=== PATIENT | female | born 1945 ===

== ENCOUNTER 2018-04-17 17:33 | Observation (INO) | payer MEDICARE, OTHER ==
--- NOTE | 2018-04-17 18:15 | ED PDOC ---
Arrival/HPI - General Chief Complaint: Chest Pain Time Seen by Provider: 04/17/18 17:46 Historian: Patient - History of Present Illness Narrative History of Present Illness (Text): 04/17/18 18:13 Patient is a 72 year old female whose past medical history includes aortic stenosis, s/p AVR, murmurs, and DVT, who presents to the emergency department with family members for 2 days of chest pain with exertion. Patient reports that 2 days ago she started experiencing left sided neck pain which radiated to her left arm and chest. Yesterday she experienced one episode of syncope and admits to experiencing one near syncopal event today. Patient reports that she feels dizzy as if she is about to lose consciousness. Patient states that her chest pain and neck pain occurs with exertion and resolves with rest. She also mentions having left lower extremity edema and myalgia. She had a stress test by her project geologist approximately 1.5 years ago but doesn't remember the results. 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 Patient denies any fever, sore throat, cough, shortness of breath, nausea, vomiting, abdominal pain, urinary/bowel changes, back pain, new rashes, headache or any other associated symptoms. Nurse Sexual Assault: . 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 - Psychiatric Hx Substance Use: No - Surgical History Hx Section: Yes Hx Valve Replacement: Yes - Suicidal Assessment Feels Threatened In Home Enviroment: No Family/Social History - Physician Review Nursing Documentation Reviewed: Yes Family/Social History: No Known Family HX Smoking Status: Never Smoked Hx Alcohol Use: Yes Hx Substance Use: No Hx Substance Use Treatment: No Allergies/Home Meds Allergies/Adverse Reactions: Allergies No Known Allergies Allergy (Verified 04/17/18 17:51) Review of Systems - Review of Systems Constitutional: absent: Fevers ENT: absent: Sore Throat Respiratory: absent: SOB, Cough Cardiovascular: Chest Pain, Syncope Gastrointestinal: absent: Abdominal Pain, Stool Changes, Nausea, Vomiting Genitourinary Female: absent: Urine Output Changes Musculoskeletal: Myalgias (left lower extremity.), Other (left lower extremity edema) Neurological: Dizziness. absent: Headache Psychiatric: absent: Depression Physical Exam Vital Signs Reviewed: Yes Vital Signs Temp Pulse Resp BP Pulse Ox 04/17/18 18:09 98.0 F 59 L 18 139/77 96 Temperature: Afebrile Blood Pressure: Normal Pulse: Bradycardic Respiratory Rate: Normal Appearance: Positive for: Well-Appearing Mental Status: Positive for: Alert and Oriented X 3 - Systems Exam Head: Present: Atraumatic, Normocephalic Pupils: Present: PERRL Extroacular Muscles: Present: EOMI Conjunctiva: Present: Normal Mouth: Present: Moist Mucous Membranes Neck: Present: Normal Range of Motion Respiratory/Chest: Present: Clear to Auscultation, Good Air Exchange. No: Respiratory Distress, Accessory Muscle Use Cardiovascular: Present: Murmurs, Normal S1, S2, Bradycardic Abdomen: No: Tenderness, Distention, Peritoneal Signs Back: Present: Normal Inspection Upper Extremity: Present: Normal Inspection. No: Cyanosis, Edema Lower Extremity: Present: Edema (Left lower extremity swelling.) Neurological: Present: GCS=15, CN II-XII Intact, Speech Normal Skin: Present: Warm, Dry, Normal Color. No: Rashes Psychiatric: Present: Alert, Oriented x 3, Normal Insight, Normal Concentration Medical Decision Making ED Course and Treatment: 04/17/18 18:34 Impression: patient is a 72 year old female who presents to the emergency department complaining of left neck pain radiating to chest and hand for the past 2 days. Had one syncopal event yesterday. Plan: -- Head CT without contrast -- Labs -- Cardiac enzymes -- EKG -- Chest X-ray -- Urinalysis -- Aspirin -- Lower extremity doppler. -- Reassess and disposition Prior Visits: Notes and results from previous visits were reviewed. Progress Notes: 04/17/18 EKG shows sinus bradycardia at 52 BPM with LBBB. LBBB unchanged from 02/17/13. Interpreted by me. 04/17/18 19:11 Radiology called and stated that US negative for DVT. 04/17/18 19:47 Discussed case with , who is aware of and agrees to accept patient under his service. 08/08/18 20:14 CT Head Without Intravenous Contrast: FINDINGS: Brain: Periventricular hypoattenuation is likely related to small vessel disease. No hemorrhage. Ventricles: Unremarkable. No ventriculomegaly. Bones/joints: Unremarkable. No acute fracture. Soft tissues: Unremarkable. Vasculature: 7mm focal calcification noted in the left frontal region. Associated lesion or vascular malformation evaluation is limited and cannot be excluded on this exam. MR evaluation is advised on non-emergent basis. No prior exams available for comparison. Sinuses: Unremarkable as visualized. No acute sinusitis. Mastoid air cells: Unremarkable as visualized. No mastoid effusion. Other findings: No acute findings. IMPRESSION: 1. No acute findings. 2. 7mm focal calcification noted in the left frontal region. Associated lesion or vascular malformation evaluation is limited and cannot be excluded on this exam. MR evaluation is advised on nonemergent basis. No prior exams available for comparison. Dictated and Authenticated by: Brooke Vegas MD - Lab Interpretations Lab Results: 04/17/18 18:10 04/17/18 18:10 Lab Results 04/17/18 18:30: Urine Color Yellow, Urine Appearance Clear, Urine pH 7.0, Ur Specific Constantia < 1.005 L, Urine Protein Negative, Urine Glucose (UA) Negative , Urine Ketones Negative, Urine Blood Small H, Urine Nitrate Negative, Urine Bilirubin Negative, Urine Urobilinogen 0.2, Ur Leukocyte Esterase Small H, Urine RBC 1 - 3, Urine WBC 2 - 5, Ur Epithelial Cells 3 - 4, Urine Bacteria Few 04/17/18 18:10: Sodium 141, Potassium 4.7, Chloride 103, Carbon Dioxide 29, Anion Gap 14, BUN 20, Creatinine 0.8, Est GFR ( Amer) > 60, Est GFR (Non- Af Amer) > 60, Random Glucose 88, Calcium 9.3, Magnesium 2.1, Total Bilirubin 0.4, AST 36, ALT 40, Alkaline Phosphatase 57, Lactate Dehydrogenase 672, Total Creatine Kinase 65, Troponin I < 0.01, NT-Pro-B Natriuret Pep 214, Total Protein 7.3, Albumin 4.4, Globulin 2.9, Albumin/Globulin Ratio 1.5 04/17/18 18:10: PT 43.7 H, INR 3.73 H*, APTT 43.3 H 04/17/18 18:10: WBC 6.1, RBC 4.69, Hgb 13.0, Hct 39.6, MCV 84.4, MCH 27.7, MCHC 32.8, RDW 13.1, Plt Count 194, MPV 10.3, Gran % 53.5, Lymph % (Auto) 38.5 H, Sabine % (Auto) 4.9, Eos % (Auto) 2.6, Baso % (Auto) 0.5, Gran # 3.26, Lymph # ( Auto) 2.4, Sabine # (Auto) 0.3, Eos # (Auto) 0.2, Baso # (Auto) 0.03 04/17/18 18:01: POC Glucose (mg/dL) 84 I have reviewed the lab results: Yes - RAD Interpretation Radiology Orders: 04/17/18 18:06 CHEST PORTABLE [RAD] Stat DUPLEX LOWER EXTRM VEIN LEFT [US] Stat 04/17/18 18:30 HEAD W/O CONTRAST [CT] Stat Video Arcade Manager: Radiologist - EKG Interpretation Interpreted by ED Physician: Yes Type: 12 lead EKG - Medication Orders Current Medication Orders: Aspirin (Ecotrin) 81 mg PO DAILY JANENE Discontinued Medications Aspirin (Aspirin) 325 mg PO STAT STA Stop: 04/17/18 18:07 Last Admin: 04/17/18 18:21 Dose: 325 mg - Scribe Statement The provider has reviewed the documentation as recorded by the Naomie Guillen Provider Scribe Attestation: All medical record entries made by the Scribe were at my direction and personally dictated by me. I have reviewed the chart and agree that the record accurately reflects my personal performance of the history, physical exam, medical decision making, and the department course for this patient. I have also personally directed, reviewed, and agree with the discharge instructions and disposition. Disposition/Present on Arrival - Present on Arrival Any Indicators Present on Arrival: No History of DVT/PE: Yes History of Uncontrolled Diabetes: No Urinary Catheter: No History of Decub. Ulcer: No History Surgical Site Infection Following: None - Disposition Have Diagnosis and Disposition been Completed?: Yes Diagnosis: Syncope, Chest pain, Abnormal CT of brain Disposition: HOSPITALIZED Disposition Time: 20:13 Patient Plan: Observation Patient Problems: Current Active Problems Problem Status Onset Syncope Acute Chest pain Acute Abnormal CT of brain Acute Condition: FAIR Discharge Instructions (ExitCare): Chest Pain (ED), Syncope (ED) Forms: [facility] (Khmer)
[2018-04-17 19:23] LABS: URINE APPEARANCE CLEAR (CLEAR); URINE BILIRUBIN NEGATIVE (NEGATIVE); URINE COLOR YELLOW (YELLOW); URINE GLUCOSE (UA) NEGATIVE (NEGATIVE)
[2018-04-17 19:24] LABS: URINE BLOOD SMALL (NEGATIVE); URINE LEUKOCYTE ESTERASE SMALL Leu/uL (NEGATIVE); URINE PROTEIN NEGATIVE mg/dL (<30 mg/dL); URINE UROBILINOGEN 0.2 E.U./dL (<1 E.U./dL)
[2018-04-17 19:25] LABS: GRAN % 53.5 % (50.0-68.0); LYMPH % 38.5 % (22.0-35.0); MEAN CELL VOLUME 84.4 fl (80.0-105.0); MEAN CORPUSCULAR HEMOGLOBIN 27.7 pg (25.0-35.0); MEAN CORPUSCULAR HGB CONC 32.8 g/dl (31.0-37.0); MEAN PLATELET VOLUME 10.3 fl (7.0-11.0); RBC 4.69 10^6/uL (3.5-6.1); RED CELL DISTRIBUTION WIDTH 13.1 % (11.5-14.5); WHITE BLOOD COUNT 6.1 10^3/ul (4.5-11.0)
[2018-04-17 19:26] LABS: BASO # 0.03 K/mm3 (0.0-2.0); BASO % 0.5 % (0.0-3.0); EOS # 0.2 (0.0-0.7); EOS % 2.6 % (1.5-5.0); GRAN # 3.26 (1.4-6.5); LYMPH # 2.4 (1.2-3.4); MONO # 0.3 (0.1-0.6); MONO % 4.9 % (1.0-6.0)
[2018-04-17 19:33] LABS: PARTIAL THROMBOPLASTIN TIME 43.3 Seconds (25.1-36.5); PROTHROMBIN TIME 43.7 SECONDS (9.4-12.5)
[2018-04-17 19:36] LABS: INR 3.73
[2018-04-17 19:38] LABS: URINE BACTERIA FEW (NEG)
[2018-04-17 19:41] LABS: BLOOD UREA NITROGEN 20 mg/dL (7-21); GFR AFRICAN-AMERICAN > 60; GFR NON-AFRICAN AMERICAN > 60
[2018-04-17 19:42] LABS: ALB/GLOB RATIO 1.5 (1.1-1.8); ALBUMIN 4.4 g/dL (3.0-4.8); ALT/SGPT 40 U/L (7-56); AST/SGOT 36 U/L (14-36); B-TYPE NATRIURETIC PEPTIDE 214 pg/mL (0-450); CALCIUM 9.3 mg/dL (8.4-10.5)
[2018-04-17 19:43] LABS: TROPONIN I < 0.01 ng/mL
[2018-04-17 23:54] VITALS: BMI 27.3
[2018-04-18 06:28] VITALS: O2SAT 97
--- NOTE | 2018-04-18 07:45 | CT ---
Date of service: 04/17/2018 PROCEDURE: CT HEAD WITHOUT CONTRAST. HISTORY: head injury COMPARISON: None available. TECHNIQUE: Axial computed tomography images were obtained through the head/brain without intravenous contrast. Radiation dose: Total exam DLP = 760 mGy-cm. This CT exam was performed using one or more of the following dose reduction techniques: Automated exposure control, adjustment of the mA and/or kV according to patient size, and/or use of iterative reconstruction technique. FINDINGS: HEMORRHAGE: No intracranial hemorrhage. BRAIN: No mass effect or edema. There is a 7 mm calcification in the left frontal lobe. No acute intracranial findings VENTRICLES: Unremarkable. No hydrocephalus. CALVARIUM: Unremarkable. PARANASAL SINUSES: Unremarkable as visualized. No significant inflammatory changes. MASTOID AIR CELLS: Unremarkable as visualized. No inflammatory changes. OTHER FINDINGS: The report concurs with the preliminary [facility] report IMPRESSION: No acute intracranial finding
--- NOTE | 2018-04-18 07:52 | CP.PCM.HP ---
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 For a week, pt had been feeling chest pain when she exert herself, improves at rest. 2 days ago, CP became worse and associated with dizziness/ syncope. She started at left sided neck pain which radiated to her left arm and chest during exertion, 8/10, improves at rest. Yesterday she experienced one episode of syncope and admits to experiencing one near syncopal event yesterday. She has decreased exercise tolerance and feeling dizzy only after walking 1/2 of a block. ROS: (+) CP, dizziness. (+) left lower extremity edema and myalgia. Patient denies any fever, sore throat, cough, shortness of breath, nausea, vomiting, abdominal pain, urinary/bowel changes, back pain, new rashes, headache or any other associated symptoms. She had a stress test by her farm reporter approximately 1.5 years ago but doesn' t remember the results. ER course: VSS. CBC normal. INR 3.73. APTT 43.3. CMP normal trop < 0,01. U/A (+) LE/blood EKG shows sinus bradycardia at 52 BPM with LBBB. LBBB unchanged from 02/17/13. U/S neg DVT CT head: No acute findings. (+) 7mm focal calcification noted in the left frontal region. 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 denies drug All: NKDA Med: Warfarin, lipitor 80, lopressor 25bid Present on Admission - Present on Admission Any Indicators Present on Admission: No Past Patient History - Infectious Disease Hx of Infectious Diseases: None - Tetanus Immunizations Tetanus Immunization: Unknown - Past Social History Smoking Status: Never Smoked - CARDIAC Hx Cardiac Disorders: Yes ([place],Cardiac arrest, valve replacement) Hx Angina: No Hx Cardia Arrhythmia: No Hx Circulatory Problems: No Hx Congestive Heart Failure: No Hx Heart Murmur: Yes Hx Heart Transplant: No Hx Hypercholesterolemia: Yes Hx Hypertension: No Hx Internal Defibrillator: No Hx Mitral Valve Prolapse: No Hx Pacemaker: No Hx Peripheral Edema: No Hx Peripheral Vascular Disease: No - PULMONARY Hx Respiratory Disorders: No Hx Asthma: No Hx Bronchitis: No Hx Chronic Obstructive Pulmonary Disease (COPD): No Hx Emphysema: No Hx Pneumonia: No Hx Respiratory Aspiration: No Hx Respiratory Tract Infection: No Hx Sleep Apnea: No Hx Tuberculosis: No - NEUROLOGICAL Hx Neurological Disorder: Yes (Tremors left hand) Hx Alzheimer's Disease: No HX Cerebrovascular Accident: No Hx Dementia: No Hx Dizziness: No Hx Meningitis: No Hx Migraine: No Hx Parkinson's Disease: No Hx Seizures: No Hx Transient Ischemic Attacks (TIA): No - HEENT Hx HEENT Problems: Yes (wears glases) Hx Blind: No Hx Cataracts: No Hx Deafness: No Hx Difficulty Chewing: No Hx Epistaxis: No Hx Glaucoma: No Hx Macular Degeneration: No - RENAL Hx Chronic Kidney Disease: No Hx Dialysis: No Hx Kidney Stones: No Hx Neurogenic Bladder: No Hx Pyelonephritis: No Hx Renal (Kidney) Cancer: No Hx Renal Failure: No - ENDOCRINE/METABOLIC Hx Endocrine Disorders: No Hx Adrenal Cancer: No Hx Diabetes Insipidus: No Hx Diabetes Mellitus Type 1: No Hx Diabetes Mellitus Type 2: No Hx Hyperthyroidism: No Hx Hypothyroidism: No Hx Systemic Lupus Erythematosus: No - HEMATOLOGICAL/ONCOLOGICAL Hx Blood Disorders: No Hx AIDS: No Hx Anemia: No Hx Cancer: No Hx Chemotherapy: No Hx Cirrhosis: No Hx Hemophilia: No Hx Hepatitis A: No Hx Hepatitis B: No Hx Hepatitis C: No Hx Human Immunodeficiency Virus (HIV): No Hx Metastesis: No Hx Shingles: No Hx Sickle Cell Disease: No Hx Unexplained Bleeding: No - INTEGUMENTARY Hx Dermatological Problems: No Hx Basil Cell: No Hx Eczema: No Hx Melanoma: No Hx Psoriasis: No Hx Squamous Cell: No - MUSCULOSKELETAL/RHEUMATOLOGICAL Hx Musculoskeletal Disorders: Yes Hx Arthritis: Yes Hx Back Pain: No Hx Degenerative Joint Disease: No Hx Falls: Yes Hx Fractures: No Hx Gout: No Hx Herniated Disk: No Hx Myasthenia Gravis: No Hx Osteoarthritis: No Hx Osteomyelitis: No Hx Osteoporosis: No Hx Rhabdomyolysis: No Hx Spinal Stenosis: No Hx Unsteady Gait: No - GASTROINTESTINAL Hx Gastrointestinal Disorders: No Hx Colostomy: No Hx Crohn's Disease: No Hx Diverticulitis: No Hx Gall Bladder Disease: No Hx Gastroesophageal Reflux: No Hx Ileostomy: No Hx Liver Failure: No Hx Pancreatitis: No HX Swallowing Problems: No Hx Ulcer: No - GENITOURINARY/GYNECOLOGICAL Hx Genitourinary Disorders: No Hx Hematuria: No Hx Incontinence: No Hx Sexually Transmitted Disorders: No Hx Urinary Tract Infection: No - PSYCHIATRIC Hx Psychophysiologic Disorder: No Hx Anxiety: No Hx Bipolar Disorder: No Hx Depression: No Hx Emotional Abuse: No Hx Hallucinations: No Hx Panic Symptoms: No Hx Paranoia: No Hx Post Traumatic Stress Disorder: No Hx Psychosis: No Hx Physical Abuse: No Hx Schizophrenia: No Hx Sexual Abuse: No - SURGICAL HISTORY Hx Surgeries: Yes (breast cyst removed, uterine cyst removed) Hx Amputation: No Hx Appendectomy: No Hx Cardiac Catheterization: No Hx Cholecystectomy: No Hx Coronary Stent: No Hx Gastric Bypass Surgery: No Hx Hysterectomy: No Hx Joint Replacement: No Hx Kidney Transplant: No Hx Liver Transplant: No Hx Mastectomy: No Hx Musculoskeletal Surgery: No Hx Open Heart Surgery: Yes Hx Orthopedic Surgery: No Hx Splenectomy: No Hx Valve Replacement: Yes Meds Allergies/Adverse Reactions: Allergies Allergy/AdvReac Type Severity Reaction Status Date / Time No Known Allergies Allergy Verified 04/17/18 17:51 Physical Exam - Constitutional Appears: No Acute Distress - Head Exam Head Exam: ATRAUMATIC, NORMAL INSPECTION, NORMOCEPHALIC Additional comments: No temporal tenderness or jaw pain - Eye Exam Eye Exam: EOMI, Normal appearance, PERRL. absent: Scleral icterus Pupil Exam: NORMAL ACCOMODATION - ENT Exam ENT Exam: Mucous Membranes Moist - Neck Exam Additional comments: supple - Respiratory Exam Respiratory Exam: Clear to Auscultation Bilateral. absent: Rales, Rhonchi, Wheezes - Cardiovascular Exam Cardiovascular Exam: REGULAR RHYTHM, +S1, +S2 Additional comments: loud S2, minimal murmur - GI/Abdominal Exam GI & Abdominal Exam: Normal Bowel Sounds, Soft. absent: Distended, Rigid, Tenderness - Extremities Exam Extremities exam: Positive for: normal capillary refill, pedal pulses present. Negative for: calf tenderness, pedal edema, tenderness - Back Exam Back exam: absent: CVA tenderness (L), CVA tenderness (R) - Neurological Exam Neurological exam: Alert, Oriented x3 - Psychiatric Exam Psychiatric exam: Normal Affect, Normal Mood - Skin Skin Exam: Dry, Warm Results - Vital Signs Recent Vital Signs: Last Vital Signs Temp 98 F 04/18/18 06:00 Pulse 63 04/18/18 06:00 Resp 16 04/18/18 06:00 BP 130/60 04/18/18 06:00 Pulse Ox 97 04/18/18 06:00 - Labs Result Diagrams: 04/17/18 18:10 04/17/18 18:10 Assessment & Plan - Assessment and Plan (Free Text) Plan: Ms Gómez, 72 F, PMHx aortic stenosis s/p open heart AVR, 2 MIs, Murmur, DVTx2/ mesentary artery thrombosis on warfarn, presented to ED for chest pain with dizziness and decreased exercise tolerance. CT head showed (+) 7mm focal calcification noted in the left frontal region. Associated lesion or vascular malformation Chest pain - telemetry, trend trops, serial EKG - Echo - pending cardio re: whether to do stress test. will make pt NPOmn just in case Syncope, cardiac vs neuro-origin, in the setting of chest pain and calcification in head - Telemetry, neuro and cardio on consult - (+) orthostatic hypotension. - pending echo - pending carotid artery to r/o vertibral insufficiancey - physical therapy for high fall risk Orthostatic hypotension - Maintain adequate hydration 7mm focal calcification noted in the left frontal region - BP control. follow up with neuro outpatient for monitoring Hypercoagulable state - Continue warfarin goal 2-3. daily INR. follow up with outpatient waterproofing machine operator or primary care doctor to complete hypercoagulable workup. Hand tremor - chronic, occupation therapy consult Neck pain - likely CP radiation vs musculoskeletal. Tylenol PRN for pain control. Low risk of temporal artery artertitis. CAD s/p 2MI, continue start ASA. Continue home metoprolol and lopressor. No INES/ ARB. will monitor BP s/r/d/w Dr Alicia <Chase Alicia S - Last Filed: 04/18/18 20:49> Results - Vital Signs Recent Vital Signs: Last Vital Signs Temp 97.9 F 04/18/18 17:04 Pulse 70 04/18/18 18:00 Resp 18 04/18/18 17:04 BP 147/57 L 04/18/18 17:30 Pulse Ox 97 04/18/18 06:00 - Labs Result Diagrams: 04/17/18 18:10 04/17/18 18:10 Labs: Laboratory Results - last 24 hr 04/18/18 12:30 Lactate Dehydrogenase 564 Total Creatine Kinase 52 Troponin I < 0.01 Assessment & Plan - Assessment and Plan (Free Text) Plan: Pt seen and examined. I have reviewed the note of the medical van driver and agree with it. I have discussed the assessment and plan with the resident. I have reviewed the patient's labs and medications. Pt with syncope. Pt would like to see Dr Tellez for her cardiology evaluation. She will need an echo. Pt has hx of DVT and on Coumadin.
--- NOTE | 2018-04-18 08:22 | RAD ---
Date of service: 04/17/2018 HISTORY: chest pain COMPARISON: 10/16/2014. FINDINGS: LUNGS: The lungs are well inflated and clear. PLEURA: No significant pleural effusion identified, no pneumothorax apparent. CARDIOVASCULAR: There is mild cardiomegaly. Status post CABG. OSSEOUS STRUCTURES: No significant abnormalities. VISUALIZED UPPER ABDOMEN: Normal. OTHER FINDINGS: There is chronic elevation of the right hemidiaphragm. IMPRESSION: No active pulmonary disease.
--- NOTE | 2018-04-18 10:34 | US ---
PROCEDURE: Left lower extremity venous US HISTORY: Leg pain and swelling. Evaluate for DVT. PHYSICIAN(S): Yonny Lafleur MD. TECHNIQUE: Duplex sonography and color-flow Doppler with graded compression were used to evaluate the deep venous system of the left lower extremity. FINDINGS: The visualized deep venous system of the left lower extremity is sonographically normal and compressible. Normal wave forms and augmentation are seen. There is no sonographic evidence for deep venous thrombosis in the visualized segments of the left lower extremity. IMPRESSION: 1. No sonographic evidence for deep venous thrombosis in the visualized segments of the left lower extremity.
--- NOTE | 2018-04-18 11:11 | CP.PCM.CON ---
History of Present Illness - History of Present Illness History of Present Illness: Awake, alert, denies chest pain, denies shortness of breath Reason for consultation: Cardiac evaluation of chest pain radiating to left arm and left side of neck. History of aortic valve replacement 2 years ago for aortic stenosis. Brief history of present illness: A 72 year old female who came in to the ER due to chest pain off and on and symptoms progressed for the past 2 days radiating to left arm and left side of neck. chest pain gets relieved with rest. Yesterday she experienced episode of syncope and admits to experiencing one near syncopal event . She had the same symptoms prior to having the valve surgery. Now denies any complaints but wanted to be worked up. Last seen by Dr. Viramontes 2 weeks ago but wanted to be seen by another Nursery Technician. History of DVT and taking Warfarin. History of aortic valve replacement 2 years ago for aortic stenosis in [place]. History of arthritis, falls, hypercholesterolemia, tremors on left hand. Seen and examined by me and Dr. Tellez Review of Systems - Review of Systems All systems: reviewed and no additional remarkable complaints except Review of Systems: except from HPI Past Patient History - Infectious Disease Hx of Infectious Diseases: None - Tetanus Immunizations Tetanus Immunization: Unknown - Past Social History Smoking Status: Never Smoked - CARDIAC Hx Cardiac Disorders: Yes ([place],Cardiac arrest, valve replacement) Hx Angina: No Hx Cardia Arrhythmia: No Hx Circulatory Problems: No Hx Congestive Heart Failure: No Hx Heart Murmur: Yes Hx Heart Transplant: No Hx Hypercholesterolemia: Yes Hx Hypertension: No Hx Internal Defibrillator: No Hx Mitral Valve Prolapse: No Hx Pacemaker: No Hx Peripheral Edema: No Hx Peripheral Vascular Disease: No - PULMONARY Hx Respiratory Disorders: No Hx Asthma: No Hx Bronchitis: No Hx Chronic Obstructive Pulmonary Disease (COPD): No Hx Emphysema: No Hx Pneumonia: No Hx Respiratory Aspiration: No Hx Respiratory Tract Infection: No Hx Sleep Apnea: No Hx Tuberculosis: No - NEUROLOGICAL Hx Neurological Disorder: Yes (Tremors left hand) Hx Alzheimer's Disease: No HX Cerebrovascular Accident: No Hx Dementia: No Hx Dizziness: No Hx Meningitis: No Hx Migraine: No Hx Parkinson's Disease: No Hx Seizures: No Hx Transient Ischemic Attacks (TIA): No - HEENT Hx HEENT Problems: Yes (wears glases) Hx Blind: No Hx Cataracts: No Hx Deafness: No Hx Difficulty Chewing: No Hx Epistaxis: No Hx Glaucoma: No Hx Macular Degeneration: No - RENAL Hx Chronic Kidney Disease: No Hx Dialysis: No Hx Kidney Stones: No Hx Neurogenic Bladder: No Hx Pyelonephritis: No Hx Renal (Kidney) Cancer: No Hx Renal Failure: No - ENDOCRINE/METABOLIC Hx Endocrine Disorders: No Hx Adrenal Cancer: No Hx Diabetes Insipidus: No Hx Diabetes Mellitus Type 1: No Hx Diabetes Mellitus Type 2: No Hx Hyperthyroidism: No Hx Hypothyroidism: No Hx Systemic Lupus Erythematosus: No - HEMATOLOGICAL/ONCOLOGICAL Hx Blood Disorders: No Hx AIDS: No Hx Anemia: No Hx Cancer: No Hx Chemotherapy: No Hx Cirrhosis: No Hx Hemophilia: No Hx Hepatitis A: No Hx Hepatitis B: No Hx Hepatitis C: No Hx Human Immunodeficiency Virus (HIV): No Hx Metastesis: No Hx Shingles: No Hx Sickle Cell Disease: No Hx Unexplained Bleeding: No - INTEGUMENTARY Hx Dermatological Problems: No Hx Basil Cell: No Hx Eczema: No Hx Melanoma: No Hx Psoriasis: No Hx Squamous Cell: No - MUSCULOSKELETAL/RHEUMATOLOGICAL Hx Musculoskeletal Disorders: Yes Hx Arthritis: Yes Hx Back Pain: No Hx Degenerative Joint Disease: No Hx Falls: Yes Hx Fractures: No Hx Gout: No Hx Herniated Disk: No Hx Myasthenia Gravis: No Hx Osteoarthritis: No Hx Osteomyelitis: No Hx Osteoporosis: No Hx Rhabdomyolysis: No Hx Spinal Stenosis: No Hx Unsteady Gait: No - GASTROINTESTINAL Hx Gastrointestinal Disorders: No Hx Colostomy: No Hx Crohn's Disease: No Hx Diverticulitis: No Hx Gall Bladder Disease: No Hx Gastroesophageal Reflux: No Hx Ileostomy: No Hx Liver Failure: No Hx Pancreatitis: No HX Swallowing Problems: No Hx Ulcer: No - GENITOURINARY/GYNECOLOGICAL Hx Genitourinary Disorders: No Hx Hematuria: No Hx Incontinence: No Hx Sexually Transmitted Disorders: No Hx Urinary Tract Infection: No - PSYCHIATRIC Hx Psychophysiologic Disorder: No Hx Anxiety: No Hx Bipolar Disorder: No Hx Depression: No Hx Emotional Abuse: No Hx Hallucinations: No Hx Panic Symptoms: No Hx Paranoia: No Hx Post Traumatic Stress Disorder: No Hx Psychosis: No Hx Physical Abuse: No Hx Schizophrenia: No Hx Sexual Abuse: No - SURGICAL HISTORY Hx Surgeries: Yes (breast cyst removed, uterine cyst removed) Hx Amputation: No Hx Appendectomy: No Hx Cardiac Catheterization: No Hx Cholecystectomy: No Hx Coronary Stent: No Hx Gastric Bypass Surgery: No Hx Hysterectomy: No Hx Joint Replacement: No Hx Kidney Transplant: No Hx Liver Transplant: No Hx Mastectomy: No Hx Musculoskeletal Surgery: No Hx Open Heart Surgery: Yes Hx Orthopedic Surgery: No Hx Splenectomy: No Hx Valve Replacement: Yes Meds Allergies/Adverse Reactions: Allergies Allergy/AdvReac Type Severity Reaction Status Date / Time No Known Allergies Allergy Verified 04/17/18 17:51 - Medications Medications: Current Medications Aspirin (Ecotrin) 81 mg PO DAILY [facility] Last Admin: 04/18/18 09:30 Dose: 81 mg Physical Exam - Constitutional Appears: No Acute Distress - Eye Exam Eye Exam: Normal appearance - ENT Exam ENT Exam: Mucous Membranes Moist - Respiratory Exam Respiratory Exam: Decreased Breath Sounds, NORMAL BREATHING PATTERN - Cardiovascular Exam Cardiovascular Exam: REGULAR RHYTHM, +S1, +S2 Additional comments: NSR 70's - GI/Abdominal Exam GI & Abdominal Exam: Normal Bowel Sounds, Soft - Neurological Exam Neurological exam: Alert, Oriented x3 - Psychiatric Exam Psychiatric exam: Normal Affect - Skin Skin Exam: Dry, Warm Results - Vital Signs Recent Vital Signs: Last Vital Signs Temp 98 F 04/18/18 06:00 Pulse 76 04/18/18 10:00 Resp 16 04/18/18 06:00 BP 130/60 04/18/18 06:00 Pulse Ox 97 04/18/18 06:00 - Labs Result Diagrams: 04/17/18 18:10 04/17/18 18:10 Assessment & Plan - Assessment and Plan (Free Text) Assessment: A 72 year old female who came in to the ER due to chest pain off and on and progressed for the past 2 days radiating to left arm and left side of neck. chest pain gets relieved with rest. Yesterday she experienced one episode of syncope and admits to experiencing one near syncopal event . She had the same symptoms prior to having the valve surgery. Now denies any complaints but wanted to be worked up. Last seen by Dr. Viramontes 2 weeks ago but wanted to be seen by another Nursery Technician. History of DVT and taking Warfarin. History of aortic valve replacement 2 years ago for aortic stenosis in [place].History of arthritis, falls, hypercholesterolemia, tremors on left hand. EKG shows sinus bradycardia at 52 BPM with LBBB,CT head: No acute findings. (+) 7mm focal calcification noted in the left frontal region. Associated lesion or vascular malformation, Syncopal episode may be due to orthostatic hypotension, orthostatic vital signs, Will order Echo to evaluate LV function and valve function, will order carotid dopplers to evaluate/ rule out carotid disease/ stenosis, holter monitor to evaluate for arrythmias. Review of previous cardiac work up: [place] cardiac [place] [facility] [place]: Denies any dizziness now and chest pain Troponin normal ECHO to evaluate LV function and valves Stress test in am Carotid dopplers to evaluate carotid stenosis/disease Holter monitor to evaluate arrythmias Orthostatic vital signs to evaluate for orthostatic hypotension Will start on low dose betablocker Will hold Warfarin for now, INR elevated 3.73, will repeat level TSH and lipid profile,hemoglobin A1C level Continue current medications Continue current treatment Will follow up Plan and treatment discussed with Dr. Tellez Thank you Dr. Stokes for the opportunity in taking care of Ms. Essence Gómez - Date & Time Date: 04/18/18 Time: 07:00
[2018-04-18] MEDS ORDERED: Sodium Chloride 0.9% 1,000 ML IV SCH (12:00)
[2018-04-18 13:04] LABS: TROPONIN I < 0.01 ng/mL
--- NOTE | 2018-04-18 13:53 | CARD ---
APPROVED REPORT Date of service: 04/18/2018 EXAM: Two-dimensional and M-mode echocardiogram with Doppler and color Doppler. INDICATION Chest Pain Syncope 2D DIMENSIONS Left Atrium (2D)3.7 (1.6-4.0cm)IVSd1.2 (0.7-1.1cm) LVDd4.4 (3.9-5.9cm)PWd1.3 (0.7-1.1cm) LVDs3.1 (2.5-4.0cm)FS (%) 30.9 % LVEF (%)58.7 (>50%) M-Mode DIMENSIONS Aortic Root1.90 (2.2-3.7cm) Aortic Valve AoV Peak [id number]/[place] GR.29mmHg Mitral Valve E/A ratio0.0 TDI E/Lateral E'0.0E/Medial E'0.0 Tricuspid Valve TR Peak [id number] [id number] Peak Gr.22mmHg [id number] LEFT VENTRICLE The left ventricle is normal size. There is normal left ventricular wall thickness. The left ventricular function is normal. The left ventricular ejection fraction is within the normal range. There is normal LV segmental wall motion. Transmitral Doppler flow pattern is Grade I-abnormal relaxation pattern. RIGHT VENTRICLE The right ventricle is normal size. There is normal right ventricular wall thickness. The right ventricular systolic function is normal. ATRIA The left atrium size is normal. The right atrium size is normal. AORTIC VALVE The aortic valve is not well visualized. There is moderate aortic regurgitation. MITRAL VALVE The mitral valve is mildly thickened. Mitral regurgitation is mild to moderate. There is no mitral valve stenosis. TRICUSPID VALVE The tricuspid valve is normal in structure. There is trace tricuspid regurgitation. PULMONIC VALVE The pulmonary valve is normal in structure. There is trace pulmonic valvular regurgitation. GREAT VESSELS The aortic root is normal in size. The IVC is normal in size and collapses >50% with inspiration. <Conclusion> The left ventricle is normal size. There is normal left ventricular wall thickness. The left ventricular function is normal. The left ventricular ejection fraction is within the normal range. There is normal LV segmental wall motion. Transmitral Doppler flow pattern is Grade I-abnormal relaxation pattern. There is moderate aortic regurgitation. Mitral regurgitation is mild to moderate.
--- NOTE | 2018-04-18 15:12 | CARD ---
APPROVED REPORT Date of service: 04/17/2018 EKG Measurement Heart [id number] <Conclusion> Sinus bradycardia with marked sinus arrhythmia Left bundle branch block Abnormal ECG
--- NOTE | 2018-04-18 17:37 | US ---
PROCEDURE: Bilateral carotid artery duplex ultrasound HISTORY: Carotid stenosis syncope PHYSICIAN(S): Yonny Lafleur MD. TECHNIQUE: Duplex sonography and color-flow Doppler were used to evaluate the carotid bifurcations and limited segments of the vertebral arteries bilaterally. FINDINGS: There is mild smooth heterogeneous plaque noted at the carotid bifurcations bilaterally. The peak systolic velocity in the proximal right internal carotid artery is 86 cm/sec. This corresponds to a 20 to 39% proximal right ICA stenosis. Normal systolic velocities are noted in the proximal right external carotid artery. There is antegrade flow in the right vertebral artery. The peak systolic velocity in the proximal left internal carotid artery is 93 cm/sec. This corresponds to a 20 to 39% proximal left ICA stenosis. Normal systolic velocities are noted in the proximal left external carotid artery. There is antegrade flow in the left vertebral artery. IMPRESSION: 1. Bilateral 20-39% proximal ICA stenoses. 2. Antegrade flow in both vertebral arteries.
--- NOTE | 2018-04-18 18:06 | CON ---
Copied To: Wayne Soto MD Attending MD: Wayne Soto MD DATE: 04/18/2018 NEUROLOGY CONSULT CHIEF COMPLAINT: Syncope. HISTORY OF PRESENT ILLNESS: This is a 72-year-old woman with past medical history of aortic stenosis, status post aortic valve replacement, history of DVT, who came in to the hospital for left-sided chest pain and left-sided neck pain. She had 1 episode of syncope. Admits experiencing one near syncopal in the past. Her blood work on 04/17/[address] head showed no acute intracranial abnormality. Just a calcification noted in the left frontal lobe. Currently, a cardiology exam for any arrhythmias or orthostatic vital signs. She moves all extremities equally and has left lower leg swelling. Carotid ultrasound done, result pending. PAST MEDICAL HISTORY: As above. SOCIAL HISTORY: No illicit drug use, smoking or EtOH abuse. REVIEW OF SYSTEMS: Fourteen-point review of systems is negative except as per the HPI. FAMILY HISTORY: Noncontributory. MEDICATIONS: Reviewed by nurses' reconciliation sheet. LABORATORY DATA: Sodium is 141, potassium is 4.7, chloride is 102, carbon dioxide 29, BUN of 20, creatinine 0.8, random glucose 88. PHYSICAL EXAMINATION: VITAL SIGNS: Temperature 97.9, pulse rate of 60, blood pressure 147/57, respiratory rate of 18, oxygen saturation 98% by room air. GENERAL: The patient is sitting up in bed, in no acute distress. HEENT: Atraumatic, normocephalic. PERRLA. Extraocular muscles intact. NECK: Supple. No JVD, no adenopathy noted. LUNGS: Clear to auscultation. No adventitious sounds. HEART: S1, S2. Normal rate and rhythm. No murmurs, rubs or gallops. ABDOMEN: Soft, nontender and nondistended. Bowel sounds are present. EXTREMITIES: No clubbing. No cyanosis. Peripheral pulses 2+ felt bilaterally. Mild right lower extremity swelling. ASSESSMENT AND PLAN: This is a 72-year-old woman with history of aortic stenosis, status post aortic valve replacement, hypertension, deep venous thrombosis, came with chest pain, parasternal left-sided as well as left arm numbness as well as left-sided neck pain. Her neck pain is most likely of underlying cervicalgia. I would recommend to have physical therapy for that in terms of cervical muscle stretching therapy versus myofascial pain release techniques. Underlying syncope could be secondary to possible vasovagal event and generalized deconditioned state. We will recommend, 1. Carotid Doppler. 2. Cardiology followup. Most likely cardiogenic in nature. 3. Orthostatic vital signs. 4. Monitor electrolytes and correct accordingly. 5. Physical Therapy/Occupational Therapy evaluation and continue with current present medical management. Thank you for this consult. Wayne Soto MD
[2018-04-19 06:38] LABS: BASO # 0.02 K/mm3 (0.0-2.0); BASO % 0.4 % (0.0-3.0); EOS # 0.2 (0.0-0.7); EOS % 3.2 % (1.5-5.0); GRAN # 2.3 (1.4-6.5); GRAN % 48.3 % (50.0-68.0); HEMOGLOBIN 12.7 g/dL (12.0-16.0); LYMPH % 42.4 % (22.0-35.0); MEAN CELL VOLUME 84.3 fl (80.0-105.0); MEAN CORPUSCULAR HEMOGLOBIN 27.7 pg (25.0-35.0); MEAN CORPUSCULAR HGB CONC 32.8 g/dl (31.0-37.0); MEAN PLATELET VOLUME 9.6 fl (7.0-11.0); MONO # 0.3 (0.1-0.6); MONO % 5.7 % (1.0-6.0); RBC 4.59 10^6/uL (3.5-6.1); RED CELL DISTRIBUTION WIDTH 13.1 % (11.5-14.5); WHITE BLOOD COUNT 4.8 10^3/ul (4.5-11.0)
[2018-04-19 06:48] LABS: INR 1.82; PROTHROMBIN TIME 21.2 SECONDS (9.4-12.5)
[2018-04-19 07:14] LABS: BLOOD UREA NITROGEN 18 mg/dL (7-21); CALCIUM 9.3 mg/dL (8.4-10.5); GFR AFRICAN-AMERICAN > 60; GFR NON-AFRICAN AMERICAN > 60; HDL CHOLESTEROL 35 mg/dL (29-60)
[2018-04-19 07:25] LABS: LDL CHOLESTEROL 95 mg/dL (0-129)
--- NOTE | 2018-04-19 08:07 | CP.PCM.PN ---
Subjective - Date & Time of Evaluation Date of Evaluation: 04/19/18 Time of Evaluation: 06:45 - Subjective Subjective: no complaints,awake, alert, denies chest pain, denies shortness of breath Reason for consultation and follow up: Cardiac evaluation of chest pain radiating to left arm and left side of neck. History of aortic valve replacement 2 years ago for aortic stenosis. Seen and examined by me and Dr. Tellez Objective - Vital Signs/Intake and Output Vital Signs (last 24 hours): Temp Pulse Resp BP Pulse Ox 97.9 F 59 L 18 147/57 L 97 04/18/18 17:04 04/19/18 06:00 04/18/18 17:04 04/18/18 17:30 04/18/18 06:00 Intake and Output: 04/19/18 04/19/18 06:59 18:59 Intake Total 0 Balance 0 - Medications Medications: Current Medications Acetaminophen (Tylenol 325mg Tab) 650 mg PO Q4H PRN PRN Reason: Headache Aspirin (Ecotrin) 81 mg PO DAILY [facility] Last Admin: 04/18/18 09:30 Dose: 81 mg Hydralazine HCl (Apresoline) 10 mg PO QID PRN PRN Reason: for sbp>160 Losartan Potassium (Cozaar) 50 mg PO DAILY [facility] Metoprolol Tartrate (Lopressor) 12.5 mg PO BRKDIN [facility] Last Admin: 04/18/18 17:30 Dose: 12.5 mg Warfarin Sodium (Coumadin) 2 mg PO 1800 [facility] PRN Reason: Protocol - Labs Labs: 04/19/18 05:45 04/19/18 05:45 PT 21.2 SECONDS (9.4-12.5) H 04/19/18 05:45 INR 1.82 04/19/18 05:45 APTT 43.3 Seconds (25.1-36.5) H 04/17/18 18:10 - Constitutional Appears: No Acute Distress - Eye Exam Eye Exam: Normal appearance - ENT Exam ENT Exam: Mucous Membranes Moist - Respiratory Exam Respiratory Exam: Clear to Ausculation Bilateral, NORMAL BREATHING PATTERN - Cardiovascular Exam Cardiovascular Exam: Bradycardia, +S1, +S2 Additional comments: holter monitor - GI/Abdominal Exam GI & Abdominal Exam: Soft, Normal Bowel Sounds - Extremities Exam Additional comments: 1+ edema - Neurological Exam Neurological Exam: Alert, Awake, Oriented x3 - Psychiatric Exam Psychiatric exam: Normal Affect - Skin Skin Exam: Dry, Warm Assessment and Plan - Assessment and Plan (Free Text) Assessment: A 72 year old female who came in to the ER due to chest pain off and on and progressed for the past 2 days radiating to left arm and left side of neck. chest pain gets relieved with rest. Yesterday she experienced one episode of syncope and admits to experiencing one near syncopal event . She had the same symptoms prior to having the valve surgery. Now denies any complaints but wanted to be worked up. Last seen by Dr. Viramontes 2 weeks ago but wanted to be seen by another Gunner'S Mate. History of DVT and taking Warfarin. History of aortic valve replacement 2 years ago for aortic stenosis in [place].History of arthritis, falls, hypercholesterolemia, tremors on left hand. EKG shows sinus bradycardia at 52 BPM with LBBB,CT head: No acute findings. (+) 7mm focal calcification noted in the left frontal region. Associated lesion or vascular malformation, Syncopal episode may be due to orthostatic hypotension, orthostatic vital signs, Will order Echo to evaluate LV function and valve function, will order carotid dopplers to evaluate/ rule out carotid disease/ stenosis, holter monitor to evaluate for arrythmias. Plan: For stress test today Denies chest pain Denies any dizziness walks to the bathroom ECHO showed- LVEF 58% moderate AR/MR Carotid dopplers done- bilateral 20-39% ICA stenosis On Holter monitor will follow up result Orthostatic vital signs normal Lying BP- 144/61 Sitting BP-149/73 Standing BP-157/77 Restarted Warfarin 2 mg daily, INR in am Neuro on consult Continue current medications Continue current treatment Will follow up Plan and treatment discussed with Dr. Tellez
[2018-04-19 13:16] LABS: INR 1.56
--- NOTE | 2018-04-19 13:42 | CP.PCM.DIS ---
<AzizaKarolina - Last Filed: 04/19/18 15:22> Provider - Provider Date of Admission: 04/17/18 19:47 Attending physician: Chase Alicia MD Time Spent in preparation of Discharge (in minutes): 30 Diagnosis - Discharge Diagnosis (1) Abnormal CT of brain Status: Acute (2) Chest pain Status: Acute (3) Syncope Status: Acute (4) Hypercoagulable state Status: Chronic Hospital Course - Lab Results Lab Results: Most Recent Lab Values WBC 4.8 10^3/ul (4.5-11.0) D 04/19/18 05:45 RBC 4.59 10^6/uL (3.5-6.1) 04/19/18 05:45 Hgb 12.7 g/dL (12.0-16.0) 04/19/18 05:45 Hct 38.7 % (36.0-48.0) 04/19/18 05:45 MCV 84.3 fl (80.0-105.0) 04/19/18 05:45 MCH 27.7 pg (25.0-35.0) 04/19/18 05:45 MCHC 32.8 g/dl (31.0-37.0) 04/19/18 05:45 RDW 13.1 % (11.5-14.5) 04/19/18 05:45 Plt Count 172 10^3/uL (120.0-450.0) 04/19/18 05:45 MPV 9.6 fl (7.0-11.0) 04/19/18 05:45 Gran % 48.3 % (50.0-68.0) L 04/19/18 05:45 Lymph % (Auto) 42.4 % (22.0-35.0) H 04/19/18 05:45 [place] % (Auto) 5.7 % (1.0-6.0) 04/19/18 05:45 Eos % (Auto) 3.2 % (1.5-5.0) 04/19/18 05:45 Baso % (Auto) 0.4 % (0.0-3.0) 04/19/18 05:45 Gran # 2.30 (1.4-6.5) 04/19/18 05:45 Lymph # (Auto) 2.0 (1.2-3.4) 04/19/18 05:45 Benton # (Auto) 0.3 (0.1-0.6) 04/19/18 05:45 Eos # (Auto) 0.2 (0.0-0.7) 04/19/18 05:45 Baso # (Auto) 0.02 K/mm3 (0.0-2.0) 04/19/18 05:45 PT 18.0 SECONDS (9.4-12.5) H 04/19/18 13:00 INR 1.56 04/19/18 13:00 APTT 43.3 Seconds (25.1-36.5) H 04/17/18 18:10 Sodium 142 mmol/L (132-148) 04/19/18 05:45 Potassium 4.7 mmol/L (3.6-5.0) 04/19/18 05:45 Chloride 107 mmol/L (98-107) 04/19/18 05:45 Carbon Dioxide 28 mmol/L (21-33) 04/19/18 05:45 Anion Gap 12 (10-20) 04/19/18 05:45 BUN 18 mg/dL (7-21) 04/19/18 05:45 Creatinine 0.8 mg/dl (0.7-1.2) 04/19/18 05:45 Est GFR ( Amer) > 60 04/19/18 05:45 Est GFR (Non-Af Amer) > 60 04/19/18 05:45 POC Glucose (mg/dL) 84 mg/dL (65-110) 04/17/18 18:01 Random Glucose 96 mg/dL (70-110) 04/19/18 05:45 Hemoglobin A1c 5.9 % (4.2-6.5) 04/19/18 05:45 Calcium 9.3 mg/dL (8.4-10.5) 04/19/18 05:45 Magnesium 2.1 mg/dL (1.7-2.2) 04/17/18 18:10 Total Bilirubin 0.4 mg/dL (0.2-1.3) 04/17/18 18:10 AST 36 U/L (14-36) 04/17/18 18:10 ALT 40 U/L (7-56) 04/17/18 18:10 Alkaline Phosphatase 57 U/L (38-126) 04/17/18 18:10 Lactate Dehydrogenase 564 U/L (333-699) 04/18/18 12:30 Total Creatine Kinase 52 U/L (35-230) 04/18/18 12:30 Troponin I < 0.01 ng/mL 04/18/18 12:30 NT-Pro-B Natriuret Pep 214 pg/mL (0-450) 04/17/18 18:10 Total Protein 7.3 g/dL (5.8-8.3) 04/17/18 18:10 Albumin 4.4 g/dL (3.0-4.8) 04/17/18 18:10 Globulin 2.9 gm/dL 04/17/18 18:10 Albumin/Globulin Ratio 1.5 (1.1-1.8) 04/17/18 18:10 Triglycerides 152 mg/dL (35-160) 04/19/18 05:45 Cholesterol 176 mg/dL (130-200) 04/19/18 05:45 LDL Cholesterol Direct 95 mg/dL (0-129) 04/19/18 05:45 HDL Cholesterol 35 mg/dL (29-60) 04/19/18 05:45 TSH 3rd Generation 2.27 mIU/mL (0.46-4.68) 04/19/18 05:45 Urine Color Yellow (YELLOW) 04/17/18 18:30 Urine Appearance Clear (CLEAR) 04/17/18 18:30 Urine pH 7.0 (4.7-8.0) 04/17/18 18:30 Ur Specific [place] < 1.005 (1.005-1.035) L 04/17/18 18:30 Urine Protein Negative mg/dL (<30 mg/dL) 04/17/18 18:30 Urine Glucose (UA) Negative mg/dL (NEGATIVE) 04/17/18 18:30 Urine Ketones Negative mg/dL (NEGATIVE) 04/17/18 18:30 Urine Blood Small (NEGATIVE) H 04/17/18 18:30 Urine Nitrate Negative (NEGATIVE) 04/17/18 18:30 Urine Bilirubin Negative (NEGATIVE) 04/17/18 18:30 Urine Urobilinogen 0.2 E.U./dL (<1 E.U./dL) 04/17/18 18:30 Ur Leukocyte Esterase Small Charo/uL (NEGATIVE) H 04/17/18 18:30 Urine RBC 1 - 3 /hpf (0-2) 04/17/18 18:30 Urine WBC 2 - 5 /hpf (0-6) 04/17/18 18:30 Ur Epithelial Cells 3 - 4 /hpf (0-5) 04/17/18 18:30 Urine Bacteria Few (NEG) 04/17/18 18:30 - Hospital Course Hospital Course: PGY3 for Dr Alicia Ms Gómez, 72 F, PMHx aortic stenosis s/p open heart AVR (2016), 2MIs (2007, 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 2 days prior to admission, chest pain became worse and associated with dizziness/syncope. chest started upon exertion, 8/10, improves at rest. Associated symptoms include left sided neck pain which radiated to her left arm , and 2 episode of syncope. She has decreased exercise tolerance and feeling dizzy only after walking 1/2 of a block. She was admitted for chest pain r/o ACS and syncope: Chest pain - resolved - trops negative x 2 - EKG shows sinus bradycardia at 52 BPM with LBBB. LBBB unchanged from 02/17/13. - Echo: - Completed stress test this AM. Pending cardiology clearance to discharge home CAD s/p 2MI - Continue lipitor. Claims Assistant added aspirin, losartan, and decreased the dose of lopressor. Syncope, likely cardiac origin - resolved - Telemetry did not reveal arrythmia. Pt is bradycardic and asymptomatic - (+) orthostatic hypotension. recommend adequate hydration - Echo: EF 58; RVSP 32. Moderate aortic regurgitation. Mild to moderate mitral regurge - carotid artery ultrasound: non-obstructing - physical therapy: not candidate for skilled PT Orthostatic hypotension - Maintain adequate hydration 7mm focal calcification noted in the left frontal region - BP control. follow up with neuro outpatient for monitoring Hypercoagulable state - Continue warfarin goal 2-3 for now. follow up with outpatient campus director or primary care doctor to complete hypercoagulable workup to confirm goal of INR. Hand tremor - chronic, not hinderance to daily activity Neck pain - likely CP radiation vs musculoskeletal. Tylenol PRN for pain control. Low risk of temporal artery artertitis. - resolved s/r/d/w Dr Alicai Discharge Exam - Head Exam Head Exam: ATRAUMATIC, NORMAL INSPECTION, NORMOCEPHALIC - Eye Exam Eye Exam: EOMI, Normal appearance, PERRL Pupil Exam: NORMAL ACCOMODATION - ENT Exam ENT Exam: Mucous Membranes Moist - Neck Exam Additional comments: supple - Respiratory Exam Respiratory Exam: Clear to PA & Lateral, NORMAL BREATHING PATTERN. absent: Rales, Rhonchi, Wheezes - Cardiovascular Exam Cardiovascular Exam: REGULAR RHYTHM, +S1, +S2. absent: Systolic Murmur - GI/Abdominal Exam GI & Abdominal Exam: Normal Bowel Sounds, Soft. absent: Rebound, Rigid - Extremities Exam Extremities exam: pedal pulses present Additional comments: No calf tenderness - Back Exam Back exam: absent: CVA tenderness (L), CVA tenderness (R) - Neurological Exam Neurological exam: Alert, Oriented x3 Additional comments: Move all extremities equally No sensory deficit - Psychiatric Exam Psychiatric exam: Normal Affect, Normal Mood - Skin Skin Exam: Dry, Warm Discharge Plan - Discharge Medications Prescriptions: Aspirin [Ecotrin] 81 mg PO DAILY #30 tabec Losartan [Cozaar] 50 mg PO DAILY #30 tab Metoprolol Tartrate [Lopressor] 12.5 mg PO BRKDIN #60 tab - Follow Up Plan Condition: FAIR Disposition: HOME/ ROUTINE Instructions: Cardiac Stress Test, Myocardial Perfusion Imaging, Chest Pain That Is Not Caused by the Heart (DC), Near Fainting (DC), Chest Pain (DC), Syncope (DC) Additional Instructions: If new symptoms, call primary care doctor or go to emergency room Repeat CT head outpatient with your primary care doctor or neurologist, Dr Soto Follow up with legal document specialist regarding this hospitalization and murmur. Maintain adequate hydration New medicine Continue Warfarin, lipitor New medicine: Aspirin, losartan, lopressor (decreased dose) Referrals: Makenzie Tellez MD [Staff Provider] - 2 Week Chase Alicia MD [Staff Provider] - 1 Week Ruben Yusuf MD [Staff Provider] - 1 Week Wayne Soto MD [Staff Provider] - 2 Week <Chase Alicia - Last Filed: 04/19/18 21:10> Provider - Provider Date of Admission: 04/17/18 19:47 Attending physician: Chase Alicia MD Hospital Course - Lab Results Lab Results: Most Recent Lab Values WBC 4.8 10^3/ul (4.5-11.0) D 04/19/18 05:45 RBC 4.59 10^6/uL (3.5-6.1) 04/19/18 05:45 Hgb 12.7 g/dL (12.0-16.0) 04/19/18 05:45 Hct 38.7 % (36.0-48.0) 04/19/18 05:45 MCV 84.3 fl (80.0-105.0) 04/19/18 05:45 MCH 27.7 pg (25.0-35.0) 04/19/18 05:45 MCHC 32.8 g/dl (31.0-37.0) 04/19/18 05:45 RDW 13.1 % (11.5-14.5) 04/19/18 05:45 Plt Count 172 10^3/uL (120.0-450.0) 04/19/18 05:45 MPV 9.6 fl (7.0-11.0) 04/19/18 05:45 Gran % 48.3 % (50.0-68.0) L 04/19/18 05:45 Lymph % (Auto) 42.4 % (22.0-35.0) H 04/19/18 05:45 B[place] % (Auto) 5.7 % (1.0-6.0) 04/19/18 05:45 Eos % (Auto) 3.2 % (1.5-5.0) 04/19/18 05:45 Baso % (Auto) 0.4 % (0.0-3.0) 04/19/18 05:45 Gran # 2.30 (1.4-6.5) 04/19/18 05:45 Lymph # (Auto) 2.0 (1.2-3.4) 04/19/18 05:45 Benton # (Auto) 0.3 (0.1-0.6) 04/19/18 05:45 Eos # (Auto) 0.2 (0.0-0.7) 04/19/18 05:45 Baso # (Auto) 0.02 K/mm3 (0.0-2.0) 04/19/18 05:45 PT 18.0 SECONDS (9.4-12.5) H 04/19/18 13:00 INR 1.56 04/19/18 13:00 APTT 43.3 Seconds (25.1-36.5) H 04/17/18 18:10 Sodium 142 mmol/L (132-148) 04/19/18 05:45 Potassium 4.7 mmol/L (3.6-5.0) 04/19/18 05:45 Chloride 107 mmol/L (98-107) 04/19/18 05:45 Carbon Dioxide 28 mmol/L (21-33) 04/19/18 05:45 Anion Gap 12 (10-20) 04/19/18 05:45 BUN 18 mg/dL (7-21) 04/19/18 05:45 Creatinine 0.8 mg/dl (0.7-1.2) 04/19/18 05:45 Est GFR ( Amer) > 60 04/19/18 05:45 Est GFR (Non-Af Amer) > 60 04/19/18 05:45 POC Glucose (mg/dL) 84 mg/dL (65-110) 04/17/18 18:01 Random Glucose 96 mg/dL (70-110) 04/19/18 05:45 Hemoglobin A1c 5.9 % (4.2-6.5) 04/19/18 05:45 Calcium 9.3 mg/dL (8.4-10.5) 04/19/18 05:45 Magnesium 2.1 mg/dL (1.7-2.2) 04/17/18 18:10 Total Bilirubin 0.4 mg/dL (0.2-1.3) 04/17/18 18:10 AST 36 U/L (14-36) 04/17/18 18:10 ALT 40 U/L (7-56) 04/17/18 18:10 Alkaline Phosphatase 57 U/L (38-126) 04/17/18 18:10 Lactate Dehydrogenase 564 U/L (333-699) 04/18/18 12:30 Total Creatine Kinase 52 U/L (35-230) 04/18/18 12:30 Troponin I < 0.01 ng/mL 04/18/18 12:30 NT-Pro-B Natriuret Pep 214 pg/mL (0-450) 04/17/18 18:10 Total Protein 7.3 g/dL (5.8-8.3) 04/17/18 18:10 Albumin 4.4 g/dL (3.0-4.8) 04/17/18 18:10 Globulin 2.9 gm/dL 04/17/18 18:10 Albumin/Globulin Ratio 1.5 (1.1-1.8) 04/17/18 18:10 Triglycerides 152 mg/dL (35-160) 04/19/18 05:45 Cholesterol 176 mg/dL (130-200) 04/19/18 05:45 LDL Cholesterol Direct 95 mg/dL (0-129) 04/19/18 05:45 HDL Cholesterol 35 mg/dL (29-60) 04/19/18 05:45 TSH 3rd Generation 2.27 mIU/mL (0.46-4.68) 04/19/18 05:45 Urine Color Yellow (YELLOW) 04/17/18 18:30 Urine Appearance Clear (CLEAR) 04/17/18 18:30 Urine pH 7.0 (4.7-8.0) 04/17/18 18:30 Ur Specific [place] < 1.005 (1.005-1.035) L 04/17/18 18:30 Urine Protein Negative mg/dL (<30 mg/dL) 04/17/18 18:30 Urine Glucose (UA) Negative mg/dL (NEGATIVE) 04/17/18 18:30 Urine Ketones Negative mg/dL (NEGATIVE) 04/17/18 18:30 Urine Blood Small (NEGATIVE) H 04/17/18 18:30 Urine Nitrate Negative (NEGATIVE) 04/17/18 18:30 Urine Bilirubin Negative (NEGATIVE) 04/17/18 18:30 Urine Urobilinogen 0.2 E.U./dL (<1 E.U./dL) 04/17/18 18:30 Ur Leukocyte Esterase Small Charo/uL (NEGATIVE) H 04/17/18 18:30 Urine RBC 1 - 3 /hpf (0-2) 04/17/18 18:30 Urine WBC 2 - 5 /hpf (0-6) 04/17/18 18:30 Ur Epithelial Cells 3 - 4 /hpf (0-5) 04/17/18 18:30 Urine Bacteria Few (NEG) 04/17/18 18:30 - Hospital Course Hospital Course: Pt seen and examined. I have reviewed the note of the nuclear medicine medical director and agree with it. I have discussed the assessment and plan with the resident. I have reviewed the patient's labs and medications. Pt with CP that has resolved. Pt does have CAD and is on ASA and Lopressor. Pt is on Coumadin for DVT. Pt was seen by neurology and cardiology. Pt has a stress test. Spoke to Dr Tellez and pt can be discharged. He will follow up with final stress results.
[2018-04-19 17:15] VITALS: BP 145/69
[2018-04-19 17:30] VITALS: PULSE 55; RESP 20; TEMP 99.6
--- NOTE | 2018-04-19 23:17 | CARD ---
APPROVED REPORT Date of service: 04/19/2018 Protocol: LEXISCAN Test Type: Lexiscan Sestamibi Stress Test Attending Physician: Dr. Makenzie Manzo Referring Physician: Dr. Chase Alicia Test Indications: Chest Pain Height:5 ft 1 in Weight:180lbs Medications: Aspirin, Cozaar, Lopressor Medical History: 72 y/o female with a history of high cholesterol, arthritis, syncope, aortic valve replacement Target HR: 150 bpm Resting ECG: RSR. LBBB. Resting Heart Rate: 59 bpm Resting Blood Pressure: 150/80mmHg Submaximum (85%): 128 bpm PROCEDURE Pharmacologic stress testing was performed using 0.4mg per 5ml of regadenoson given intravenously over 7-10 seconds. POST EXERCISE Reason for Termination: Protocol completed Target HR: No Max HR: 70 bpm 63% of Maximum Predicted HR: 150 bpm Exercise duration: 00:30 min:sec, 0 Stage Exercise capacity: 1.0METs Max Blood Pressure: 150/80mmHg Blood Pressure response to exercise: normal resting BP - appropriate response Heart Rate response to exercise: appropriate Chest Pain: Yes, Tightness Both sides of Mandible. Angina index: 0 Arrhythmia: No, none ST Change: Yes, ST_T Changes difficult to comment due to LBBB. Deviation: 0 mm INTERPRETATION Stress EKG Conclusion: IV LEXISCAN NUCLEAR STRESS TEST DURING WHICH PATIENT FELT TIGHTNESS AT MANDIBLE. DIFFICULT TO COMMENT ABOUT ST-T CHANGES DUETO LBBB. NUCLEAR SCAN REPORT PENDING. Signed by Makenzie Manzo Electronically Approved: 04/19/2018 11:15:14 EXAM: Myocardial Perfusion REST/STRESS Stress Test Type: Pharmacologic Imaging Protocol Rest Spect myocardial perfusion imaging was performed in supine position 50 minutes following the injection of 10.1 mCi of Tc-99 Myoview. At peak stress, the patient was injected intravenously with 30.9mCi of Tc-99 tetrofosmin after an infusion time of 0 minutes and 10 seconds. Gated Stress Spect was performed 65 minutes after intravenous Tc-99 Myoview injection. The images were gated to evaluate regional wall motion and calculate ventricular ejection fraction.Images were reconstructed using backfilter projection method in short horizontal and verticle long axis. Spect slices were generated. LV Perfusion The quality of the study is good. The left ventricle is normal in size. The right ventricle is unremarkable. The lung uptake is normal. The distribution of tracer reveals mildly decreased perfusion involving apical wall on the stress study. The remainder of the LV myocardium is unremarkable. The rest myocardial perfusion study shows no significant change. Wall Motion Wall motion study shows good contractility of the left ventricle. LVEF = 66%. Conclusion 1. Essentially normal SPECT myocardial perfusion study. 2. Fixed, apical defect is most likely due to breast attenuation. 3. Normal gated wall motion of the left ventricle.
== END 2018-04-19 18:23 | disposition home or self-care (01) ==
LOC: ED 17:33 → ERH 19:47 → 2RNO 22:10
PROVIDERS: ADMIT Internal Medicine Nephrology; ATTEND Internal Medicine Nephrology
DX: I95.1 Orthostatic hypotension (principal); R07.9 Chest pain, unspecified; R55 Syncope and collapse; D68.59 Other primary thrombophilia; I35.2 Nonrheumatic aortic (valve) stenosis with insufficiency; I10 Essential (primary) hypertension; I25.10 Atherosclerotic heart disease of native coronary artery without angina pectoris; I44.7 Left bundle-branch block, unspecified; M54.2 Cervicalgia; R25.1 Tremor, unspecified; E78.00 Pure hypercholesterolemia, unspecified; M19.90 Unspecified osteoarthritis, unspecified site; I25.2 Old myocardial infarction; R93.8 Abnormal findings on diagnostic imaging of other specified body structures; Z79.82 Long term (current) use of aspirin; Z79.01 Long term (current) use of anticoagulants; Z95.2 Presence of prosthetic heart valve; Z86.74 Personal history of sudden cardiac arrest; Z82.0 Family history of epilepsy and other diseases of the nervous system; Z86.718 Personal history of other venous thrombosis and embolism
CPT/HCPCS: 36415; 70450; 71045; 78452; 80048; 80053; 80061; 81001; 82550; 82948; 83036; 83615; 83735; 83880; 84443; 84484; 85025; 85610; 85730; 87086; 93005; 93017; 93225; 93226; 93306; 93880; 93971; 97116; 97161; 99285; A9502; G0378; G8978; G8979; G8980; J7030

== ENCOUNTER 2018-11-29 11:44 | Outpatient (CLI) | payer MEDICARE | END 2018-11-29 11:45 | disposition home or self-care (01) | LOC: RAD 11:45 ==

== ENCOUNTER 2019-01-24 10:11 | Outpatient (CLI) | payer MEDICARE | END 2019-01-24 10:12 | disposition home or self-care (01) | LOC: CARDIO 10:11 | DX: I48.0 Paroxysmal atrial fibrillation (principal); I35.9 Nonrheumatic aortic valve disorder, unspecified ==